=== PATIENT | male | born 1950 | race Caucasian/White ===

== ENCOUNTER 2022-03-26 17:02 | Emergency (ER) | payer MEDICARE, SELFPAY ==
[2022-03-26 17:31] VITALS: BP 124/92; PULSE 97; RESP 18; TEMP 36.4; O2SAT 97; BMI 28.0
[2022-03-26 17:46] VITALS: BP 124/92; RESP 14
--- NOTE | 2022-03-26 17:46 | CRLHL7_ITS ---
For Patients: As a result of the Century Cures Act, medical imaging exams and procedure reports are released immediately into your electronic medical record. You may view this report before your referring provider. If you have questions, please contact your health care provider. INDICATION: Falls. Head injury. Memory issues. TECHNIQUE: Multiple axial images were obtained through the brain without contrast. Sagittal and coronal re-formatted images were obtained. COMPARISON: None. FINDINGS: The ventricles and sulci are prominent. There is no mass effect or midline shift. There is no intracranial hemorrhage. There is decreased attenuation in the periventricular white matter consistent with small vessel seen disease. There is no skull fracture seen IMPRESSION: No acute intracranial abnormality. Atrophy and findings consistent with small vessel ischemic disease. Please note that all CT scans at this facility use dose modulation, iterative reconstruction, and/or weight-based dosing when appropriate to reduce radiation dose to as low as reasonably achievable. Dictated by Jacek Friedman MD @ 03/26/2022 7:07:04 PM (Electronically Signed)
--- NOTE | 2022-03-26 17:49 | ED_ITS ---
HPI - General Adult General Time Seen by Provider: 17:33 Date Seen: 03/26/22 Chief complaint: Fall/Minor Trauma Stated complaint: Falls Time Seen by Provider: 03/26/22 17:14 Source: patient, family (Daughter is present) and RN notes reviewed Mode of arrival: ambulatory Limitations: no limitations History of Present Illness HPI narrative: This 71-year-old male is brought in by his daughter from [facility] where he resides with concern of a fall. He had a witnessed fall on March 18 and hit the right side of his head, no loss of consciousness, denies any blood thinners. Not taking any NSAIDs or aspirin. He did not answer his phone this morning when his daughter was calling and they went to see him this afternoon. They found him on the ground in his living room where they thought he had fallen. As he is here, he states he did not fall today and that he was actually sleeping on the floor. He does admit though that people that fall may not know that there falling. He states he does not sleep in his bed and will sleep on the floor. He states to get up he will crawl to the couch and pull himself up. His daughter notes that they had to get him up from the ground. He recurrent least states that he has not fallen today. He has difficulty remembering his current physician and worries seen at. It sounds as if he is seen at [facility] here in [place]. He does admit there is still little pain on his right forehead where this happen. No visual issues, no pain anywhere else. He has had no neck or back pain. He does endorse some lower extremity edema that is worse on the left, does not sound like it has been evaluated. His daughter privately did tell nursing staff that patient has a significant history of alcohol use. Location: head Related Data Previous Rx's Medication Instructions Recorded magnesium 200 mg tablet 200 mg PO BID #60 tab 03/26/22 potassium chloride 20 mEq 20 meq PO DAILY #7 tab 03/26/22 tablet,extended release Allergies Allergy/AdvReac Type Severity Reaction Status Date / Time No Known Drug Allergies Allergy Verified 03/26/22 19:56 Review of Systems Status of ROS: Reports: 10 or more systems reviewed and unremarkable except as noted in History and below [facility] Medical History (Updated 03/26/22 @ 21:48 by Humaira Doty MD) Alcohol abuse Cancer CVA (cerebral vascular accident) Surgical History S/P cataract surgery Status post prostatectomy Social History Smoking Status: Never smoker Do you use any of these nicotine containing products: None Second hand tobacco smoke exposure: No How often do you have a drink containing alcohol: 4 or more times a week How many standard drinks containing alcohol do you have on a typical day: 3 or 4 AUDIT-C Alcohol total score: 5 Non-prescribed substance use: denies use Exam Const: Vital Signs, click to edit/add: Vital Signs - 24 hr 03/26/22 17:31 03/26/22 17:46 03/26/22 21:30 Temperature 97.5 F L Pulse Rate [Left P ulse Oximeter] 97 103 H Respiratory Rate 18 14 14 Blood Pressure [Le ft Upper Arm] 124/92 H 124/92 H 115/94 H Pulse Oximetry 97 95 Documenting provider has reviewed patient's vital signs: yes Common normals: no apparent distress and alert General appearance: cooperative and comfortable Orientation/consciousness: Yes awake HENMT: Common normals: external ears normal, external nose normal, oropharynx normal and dentition normal Nose: external nose normal External ear: external ears normal Other: Has bruising the looks dependent and resolving above the right supraorbital ridge and some dependent changes on the zygomatic arch, absolutely no pain on the zygomatic arch. He has got abrasions that are scabbed over and well healing without any evidence of infection on his right frontal forehead. There is no periorbital swelling on either side. Eye: Common normals: PERRL and EOMs intact bilaterally Periorbital: periorbital findings normal Conjunctiva: conjunctiva abnormal (Mild scleral icterus bilaterally, left lateral subconjunctival hematoma) Pupil: PERRL Neck & C-Spine: Common normals: full ROM, no lymphadenopathy, supple, no JVD and thyroid normal Thyroid: thyroid normal Chest: Common normals: inspection of chest normal Resp: Common normals: normal respiratory effort, no use of accessory muscles and clear to auscultation bilaterally Auscultation: clear to auscultation bilaterally Cardio: Common normals: no JVD, regular rate, regular rhythm, S1 normal heart sound and S2 normal heart sound Rate: regular rate Rhythm: regular rhythm Heart sounds: S1 normal and S2 normal GI: Common normals: Normal to inspection, nondistended, normoactive bowel sounds present, soft to palpation, non-tender and no masses Palpation: soft Extremity: Other: Bilateral pitting edema lower extremities, left worse than right. No secondary changes to be concerned of infection at this time. Neuro: Sensorium/orientation: awake and alert Course Course Hospital Course: Will get appropriate lab work including liver functions. Will proceed with a noncontrast head CT to ensure no underlying changes such as chronic subdurals, mild clinically insignificant brain bleeds etc.. Is unclear if this was a fall today or if he is actually sleeping on the floor. Certainly this patient may need increased cares but this point I am not sure if this is something he would consider at all. Will do initial metabolic workup with the labs, rule out traumatic Head changes with the CT as already reviewed. Reevaluation(s) Reevaluation #1: Reviewed with patient the finding of the hypokalemia and the painless jaundice. He has mildly elevated INR. He admits that he does his cooking and may not be eating adequately appropriately. My guess is the potassium certainly could be nutritionally deplete. As far as the bilirubin, we discussed with painless jaundice that next step I would recommend here in our ER would be to do a CT abdomen and pelvis with IV contrast. He is agreement. I have also ordered an EKG as well as 50 mEq oral potassium, effervescent, to increase his potassium absorption more quickly. I am adding on conjugation of the bilirubin given his total level was 6. He understands he is going to need an IV placed for the CT scan. Did have a chance to talk to his daughter once he went offers abdomen imaging. She states he has really been a lifelong alcoholic but there has been decline over the last couple years with more significant decline in his level of functioning and mentation in the last few months per her report. Time: 19:20 Reevaluation #2: Have reviewed with patient and his ex- who is now present the findings on the CT. He does have asymptomatic cholelithiasis. We discussed the liver disease seen on the CT and concern that this is alcohol related. Recommend seen GI at some point in the near future just to ensure that there was no other concomitant disease besides alcohol. It is stressed to him that he needs to stop drinking. His ex- is worried about him going back to [facility] as he lives alone, she has concerns that he will drink again. I have reviewed with her that unless the patient has medical issue needing hospitalization, supports the family's decision that he needs a higher level of care and is willing to go to a longterm, then we really have no reason for hospitalization. We are awaiting a lipase level on him which I presume is going to be normal, magnesium level and I am rechecking a potassium after his oral 50 mEq of the effervescent potassium. He really is asymptomatic. His ex- is worried about alcohol withdrawal and he shows no hemodynamic changes of that starting, no physical stigmata at this time. Patient is adamant that he does not want a higher level of care and would not go to a longterm. At this time, I a do have a sense he might have some mild cognitive changes but do not feel that he is incapacitated from making decisions. Unfortunately, ongoing alcohol use is a poor decision for him but is 1 that he is legally allowed to make at this time. I have discussed with them possibility of detox which he is not interested in. As far as stopping alcohol, my best recommendation is for treatment which they would have to work with the county or insurance to get that scheduled and prior authorize. Time: 21:20 Reevaluation #3: Patient's potassium has come back at 3. He is still asymptomatic, have reviewed his magnesium is low 1.1. He wants to go home. Thus I have ordered him 400 mg oral magnesium as he does not want to wait the 2 hours for IV. Again, he has likely been at these levels with his electrolytes for some time and this is not a new acute finding most likely. I do feel he is stable to discharge to home as hospitalization may further correct his electrolytes, but it will not stop the alcohol use disorder. He very well may need treatment for that and that is not something that hospitalization here can facilitate. Overall, he is clinically safe for discharge to home. Time: 21:50 Vital Signs Vital signs: Initial Vital Signs Temperature 97.5 F L 03/26/22 17:31 Temperature Source Temporal Artery Scan 03/26/22 17:31 Pulse Rate 97 03/26/22 17:31 Respiratory Rate 18 03/26/22 17:31 Blood Pressure 124/92 H 03/26/22 17:31 Blood Pressure Mean 102 03/26/22 17:31 Blood Pressure Position Sitting 03/26/22 17:31 Pulse Oximetry 97 03/26/22 17:31 Oxygen Delivery Method 03/26/22 17:31 Vital Signs Temperature 97.5 F L 03/26/22 17:31 Pulse Rate 97 03/26/22 17:31 Respiratory Rate 18 03/26/22 17:31 Blood Pressure 124/92 H 03/26/22 17:31 Pulse Oximetry 97 03/26/22 17:31 Temperature 97.5 F L 03/26/22 17:31 Pulse Rate 103 H 03/26/22 21:30 Respiratory Rate 14 03/26/22 21:30 Blood Pressure 115/94 H 03/26/22 21:30 Pulse Oximetry 95 03/26/22 21:30 Medical Decision Making MDM Narrative Medical decision making narrative: During his course here, initially considered traumatic head injuries as well as alcohol affects and secondary medical issues from alcohol. His found to have hypokalemia likely nutritional related, compounded by his alcoholism. He was also found to have painless jaundice which thankfully in the workup thus far, CT abdomen pelvis with IV contrast shows no evidence of any pancreatic mass. In his situation, this very likely may just be his alcoholic liver disease but warrants further evaluation with a GI specialist/liver specialist to ensure no other concomitant diseases. This is stable at this time though and does not warrant hospitalization for this. His cholelithiasis is asymptomatic and is a secondary finding. Lab Data Labs: Lab Results 03/26/22 03/26/22 03/26/22 Range/Units 18:12 18:12 18:12 WBC 10.04 (4.50-11.00) K/uL RBC 3.71 L (4.30-5.90) m/uL Hgb 13.6 (13.5-17.5) gm/dL Hct 38.8 (37.0-53.0) % MCV 105 H (80-100) fL MCH 37 H (26-34) pg MCHC 35 (32-36) gm/dL RDW Coeff of Afia 14.4 (11.5-15.5) % Plt Count 212 (140-440) K/uL Neut % (Auto) 77.8 H (42.0-72.0) % Lymph % (Auto) 10.2 L (20-44) % Kemper % (Auto) 10.5 (0.0-11.0) % Eos % (Auto) 0.3 (0.0-7.0) % Baso % (Auto) 0.4 (0.0-3.0) % Neut # (Auto) 7.80 H (1.7-7.0) K/uL Lymph # (Auto) 1.00 (0.90-2.90) K/uL Kemper # (Auto) 1.10 H (0.00-0.90) K/UL Eos # (Auto) 0.03 (0.00-0.50) K/uL Baso # (Auto) 0.04 (0.00-0.30) K/uL Abs Immat Gran (auto) 0.08 (0.00-0.30) K/uL INR 1.32 H (0.91-1.10) APTT 31 (23-33) Seconds Sodium 131 L (135-149) mmol/L Potassium 2.7 L* (3.6-5.1) mmol/L Chloride 89 L (96-114) mmol/L Carbon Dioxide 36 H (20-32) mmol/L BUN 15 (7-30) mg/dL Creatinine 0.5 (0.5-1.5) mg/dL Estimated Creat Clear 68.94 Glucose 117 H (60-115) mg/dL Lactate (0.5-1.9) mmol/L Calcium 7.7 L (8.4-10.6) mg/dL Magnesium (1.5-2.6) mg/dL Total Bilirubin 6.0 H (0.1-1.5) mg/dL Direct Bilirubin 3.6 H (0.0-0.5) mg/dL AST 94 H (12-35) U/L ALT 46 (4-50) U/L Alkaline Phosphatase 92 (40-150) U/L Ammonia (13.1-30.0) umol/L Total Protein 6.2 (6.0-8.3) g/dL Albumin 2.9 L (3.3-5.0) g/dL Lipase 27 (23-300) U/L Ethyl Alcohol < 0.01 L (0.01-0.03) % 03/26/22 03/26/22 03/26/22 Range/Units 18:12 18:50 21:30 WBC (4.50-11.00) K/uL RBC (4.30-5.90) m/uL Hgb (13.5-17.5) gm/dL Hct (37.0-53.0) % MCV (80-100) fL MCH (26-34) pg MCHC (32-36) gm/dL RDW Coeff of Afia (11.5-15.5) % Plt Count (140-440) K/uL Neut % (Auto) (42.0-72.0) % Lymph % (Auto) (20-44) % Kemper % (Auto) (0.0-11.0) % Eos % (Auto) (0.0-7.0) % Baso % (Auto) (0.0-3.0) % Neut # (Auto) (1.7-7.0) K/uL Lymph # (Auto) (0.90-2.90) K/uL Kemper # (Auto) (0.00-0.90) K/UL Eos # (Auto) (0.00-0.50) K/uL Baso # (Auto) (0.00-0.30) K/uL Abs Immat Gran (auto) (0.00-0.30) K/uL INR (0.91-1.10) APTT (23-33) Seconds Sodium (135-149) mmol/L Potassium 3.0 L (3.6-5.1) mmol/L Chloride (96-114) mmol/L Carbon Dioxide (20-32) mmol/L BUN (7-30) mg/dL Creatinine (0.5-1.5) mg/dL Estimated Creat Clear Glucose (60-115) mg/dL Lactate 2.5 H (0.5-1.9) mmol/L Calcium (8.4-10.6) mg/dL Magnesium 1.1 L (1.5-2.6) mg/dL Total Bilirubin (0.1-1.5) mg/dL Direct Bilirubin (0.0-0.5) mg/dL AST (12-35) U/L ALT (4-50) U/L Alkaline Phosphatase (40-150) U/L Ammonia < 9.0 L (13.1-30.0) umol/L Total Protein (6.0-8.3) g/dL Albumin (3.3-5.0) g/dL Lipase (23-300) U/L Ethyl Alcohol (0.01-0.03) % Imaging Data CT scan - head: Attestation: I have reviewed the pertinent imaging results. My impression: My preliminary review of this noncontrast head CT, I do not find any acute bleed or fracture. Radiologist's impression: Patient: PAKO COLEMAN Facility:?[facility] Patient ID:?[id number] Site Patient ID:?[id number]. Site :?[id number] Study:?CT Head W/O-03/26/2022 6:26:09 PM Ordering Physician:Katie Gerardo Final Report: INDICATION: Falls. Head injury. Memory issues. TECHNIQUE: Multiple axial images were obtained through the brain without contrast. Sagittal and coronal re-formatted images were obtained. COMPARISON: None. FINDINGS: The ventricles and sulci are prominent. There is no mass effect or midline shift. There is no intracranial hemorrhage. There is decreased attenuation in the periventricular white matter consistent with small vessel seen disease. There is no skull fracture seen IMPRESSION: No acute intracranial abnormality. Atrophy and findings consistent with small vessel ischemic disease. Please note that all CT scans at this facility use dose modulation, iterative reconstruction, and/or weight-based dosing when appropriate to reduce radiation dose to as low as reasonably achievable. Dictated by Jacek Friedman MD @ 03/26/2022 7:07:04 PM (Electronic Signature) CT scan - abdomen: Attestation: I have reviewed the pertinent imaging results. Radiologist's impression: Patient: PAKO COLEMAN Facility:?[facility] Patient ID:?[id number] Site Patient ID:?[id number] Site :?[id number] Study:?CT Abdomen/Pelvis -03/26/2022 7:59:01 PM Ordering Physician:Katie Gerardo Final Report: INDICATION: Painless jaundice TECHNIQUE: CT abdomen and pelvis acquired with i.v. 95 mL Isovue 370. Coronal and sagittal reformats were obtained. COMPARISON: No comparison CT. FINDINGS: [employer] CT images: Nonobstructive bowel gas pattern. Multilevel lumbar spine degenerative disc disease. Lower chest: Unremarkable. Liver: Extensive low attenuation throughout the liver parenchyma. Likely areas of geographic low-attenuation. Liver capsule appears to be grossly smoothly marginated. Small amount of ascites adjacent to the liver. Spleen: Unremarkable. Pancreas: No pancreatic mass or calcifications. No peripancreatic inflammatory changes. Main pancreatic duct normal in caliber. Gallbladder and bile ducts: Dependent gallstone, series 2, image 43. No acute inflammatory changes in the gallbladder fossa. Common bile duct normal in caliber. Kidneys: Unremarkable. No kidney or ureteral stones and no hydronephrosis seen. Benign appearing cyst in the right kidney, noted on series 2, image 49. Adrenal glands: Unremarkable. GI tract: Bowel loops are normal in caliber. Sigmoid diverticulosis. No abnormal colonic wall thickening. Vascular: Portal vein branches, splenic vein, and SMV are patent. Origins of celiac artery and SMA are widely patent. Abdominal aorta normal in caliber. Lymph nodes: Unremarkable. Miscellaneous: Unremarkable. No pneumoperitoneum is seen. No significant ascites is noted. Pelvic Organs: Bladder wall normal. No free pelvic fluid. No enlarged inguinal or pelvic sidewall lymph nodes. Prostate gland not identified. Bones: Unremarkable for age. IMPRESSION: 1. Diffuse, extensive low attenuation to the liver, indicating likely extensive fatty infiltration or significant chronic liver disease. No imaging evidence of liver cirrhosis or focal liver lesion. Small amount of ascites adjacent to the liver. Splenic size normal. Portal vein patent. No pancreatic mass. 2. Cholelithiasis. No CT imaging evidence of acute cholecystitis. Bile ducts are normal in caliber. 3. Diverticulosis. Dictated by Steffen Angel MD @ 03/26/2022 9:00:10 PM Please note that all CT scans at this facility use dose modulation, iterative reconstruction, and/or weight-based dosing when appropriate to reduce radiation dose to as low as reasonably achievable. Dictated by: Steffen Angel MD @ 03/26/2022 21:00:16 (Electronic Signature) ECG Data Attestation: I personally reviewed and interpreted this ECG as follows: (Sinus rhythm, 90 beats per minute, baseline artifact and low voltage. There is flattening of T-waves that they do see that looks more diffuse, QT corrected is 491 milliseconds.) Prior ECG tracings: available for review (Compared to an EKG from February of 2020 and his QT corrected was 437 milliseconds at that time, he showed sinus rhythm 70 beats per minute but had normal appearing T-waves, certainly more peaked than what I am seen and this EKG today. Will have nursing staff place him on cardiac monitoring with these ) Critical Care Time Critical Care Time Critical Care Time: No Discharge Plan Discharge Clinical Impression: Liver disease, Alcohol use disorder, Hyperbilirubinemia, Hypokalemia, Hypomagnesemia Patient Disposition: Home, Self-Care Condition: Stable Instructions: Hypokalemia (ED), Alcohol Withdrawal (ED), Hypomagnesemia (ED), Alcohol Use Disorder (ED) Additional Instructions: It is extremely important that you stop drinking alcohol, you may need to consider chemical dependency treatment to attain the school if needed. If you need assistance for placement for chemical dependency, can work with your insurance or contact the county you reside in to help with this. Will replace your potassium for the next few days but will need to be rechecked in clinic early this next week. You need to get scheduled for a clinic followup [facility]. I would recommend referral to a GI specialist/liver specialist to further workup your liver disease and continue monitoring your elevated bilirubin level/jaundice. Also recommend taking a multi vitamin daily, thiamine 100 mg daily. Start the oral potassium and oral magnesium replacement tomorrow, prescriptions sent to pharmacy. Activity Level: Activity as Tolerated Prescriptions: New potassium chloride 20 mEq tablet extended release 20 meq PO DAILY Qty: 7 0RF magnesium 200 mg tablet 200 mg PO BID Qty: 60 0RF Follow Up/Referrals: Josh Ramsay MD [Primary Care Provider] - Stand Alone Forms: SCADA Access Info Instructions
[2022-03-26 18:37] LABS: Albumin* 2.9 g/dL (3.3-5.0); Chloride* 89 mmol/L (96-114)
[2022-03-26 18:38] LABS: Sodium* 131 mmol/L (135-149)
[2022-03-26 18:40] LABS: Carbon Dioxide* 36 mmol/L (20-32); Creatinine* 0.5 mg/dL (0.5-1.5); Est. Creatinine Clearance* 68.94; Estimated Glomerular Filt Rate 108.37
[2022-03-26 18:41] LABS: Alanine Aminotransferase* 46 U/L (4-50); Alkaline Phosphatase* 92 U/L (40-150); Aspartate Amino Transferase* 94 U/L (12-35); Basophils Absolute Auto 0.04 K/uL (0.00-0.30); Basophils Percent Auto 0.4 % (0.0-3.0); Blood Urea Nitrogen* 15 mg/dL (7-30); Calcium* 7.7 mg/dL (8.4-10.6); Eosinophils Absolute Auto 0.03 K/uL (0.00-0.50); Eosinophils Percent Auto 0.3 % (0.0-7.0); Glucose* 117 mg/dL (60-115); Hematocrit 38.8 % (37.0-53.0); Hemoglobin* 13.6 gm/dL (13.5-17.5); INR 1.32 (0.91-1.10); Immature Granulocytes Abs Auto 0.08 K/uL (0.00-0.30); Lymphocytes Percent Auto 10.2 % (20-44); Mean Corpuscular HGB Conc 35 gm/dL (32-36); Mean Corpuscular Hemoglobin 37 pg (26-34); Mean Corpuscular Volume 105 fL (80-100); Monocytes Percent Auto 10.5 % (0.0-11.0); Neutrophils Percent Auto 77.8 % (42.0-72.0); Platelet Count* 212 K/uL (140-440); Prothrombin Time 16.8 Seconds; RDW Coefficient of Variation % 14.4 % (11.5-15.5); Red Blood Count 3.71 m/uL (4.30-5.90); Total Protein* 6.2 g/dL (6.0-8.3); White Blood Count* 10.04 K/uL (4.50-11.00)
[2022-03-26 18:42] LABS: Partial Thromboplastin Time* 31 Seconds (23-33)
[2022-03-26 18:50] LABS: Slide Review Reflex No
[2022-03-26 18:53] LABS: Ammonia* < 9.0 umol/L (13.1-30.0); Ethanol* < 0.01 % (0.01-0.03); Potassium* 2.7 mmol/L (3.6-5.1)
[2022-03-26 18:54] LABS: Lactate* 2.5 mmol/L (0.5-1.9)
--- NOTE | 2022-03-26 19:20 | CRLHL7_ITS ---
For Patients: As a result of the 21st Century Cures Act, medical imaging exams and procedure reports are released immediately into your electronic medical record. You may view this report before your referring provider. If you have questions, please contact your health care provider. INDICATION: Painless jaundice TECHNIQUE: CT abdomen and pelvis acquired with i.v. 95 mL Isovue 370. Coronal and sagittal reformats were obtained. COMPARISON: No comparison CT. FINDINGS: [employer] CT images: Nonobstructive bowel gas pattern. Multilevel lumbar spine degenerative disc disease. Lower chest: Unremarkable. Liver: Extensive low attenuation throughout the liver parenchyma. Likely areas of geographic low-attenuation. Liver capsule appears to be grossly smoothly marginated. Small amount of ascites adjacent to the liver. Spleen: Unremarkable. Pancreas: No pancreatic mass or calcifications. No peripancreatic inflammatory changes. Main pancreatic duct normal in caliber. Gallbladder and bile ducts: Dependent gallstone, series 2, image 43. No acute inflammatory changes in the gallbladder fossa. Common bile duct normal in caliber. Kidneys: Unremarkable. No kidney or ureteral stones and no hydronephrosis seen. Benign appearing cyst in the right kidney, noted on series 2, image 49. Adrenal glands: Unremarkable. GI tract: Bowel loops are normal in caliber. Sigmoid diverticulosis. No abnormal colonic wall thickening. Vascular: Portal vein branches, splenic vein, and SMV are patent. Origins of celiac artery and SMA are widely patent. Abdominal aorta normal in caliber. Lymph nodes: Unremarkable. Miscellaneous: Unremarkable. No pneumoperitoneum is seen. No significant ascites is noted. Pelvic Organs: Bladder wall normal. No free pelvic fluid. No enlarged inguinal or pelvic sidewall lymph nodes. Prostate gland not identified. Bones: Unremarkable for age. IMPRESSION: 1. Diffuse, extensive low attenuation to the liver, indicating likely extensive fatty infiltration or significant chronic liver disease. No imaging evidence of liver cirrhosis or focal liver lesion. Small amount of ascites adjacent to the liver. Splenic size normal. Portal vein patent. No pancreatic mass. 2. Cholelithiasis. No CT imaging evidence of acute cholecystitis. Bile ducts are normal in caliber. 3. Diverticulosis. Dictated by Steffen Angel MD @ 03/26/2022 9:00:10 PM Please note that all CT scans at this facility use dose modulation, iterative reconstruction, and/or weight-based dosing when appropriate to reduce radiation dose to as low as reasonably achievable. Dictated by: Steffen Angel MD @ 03/26/2022 21:00:16 (Electronically Signed)
[2022-03-26] MEDS: POTASSIUM BICARB 25 MEQ EFFERVESCENT TAB 50 MEQ PO (19:53)
[2022-03-26 20:09] LABS: Bilirubin Conjugated* 1.2 mg/dl (0.0-0.5); Bilirubin Direct* 3.6 mg/dL (0.0-0.5); Bilirubin Unconjugated* 2.4 mg/dl (0.0-0.3)
[2022-03-26 20:10] LABS: Lipase* 27 U/L (23-300)
[2022-03-26 21:26] LABS: Magnesium* 1.1 mg/dL (1.5-2.6)
[2022-03-26 21:30] VITALS: BP 115/94; PULSE 103; RESP 14; O2SAT 95
[2022-03-26] MEDS: MAGNESIUM OXIDE 400 MG TABLET PO (22:00)
[2022-03-28 16:52] LABS: Lipase* 28 U/L (23-300)
== END 2022-03-26 22:41 | disposition home or self-care (01) ==
PROVIDERS: Emergency Provider Family Medicine; PCP Family Medicine
DX: E80.6 Other disorders of bilirubin metabolism (principal); E87.6 Hypokalemia; E83.42 Hypomagnesemia; F10.10 Alcohol abuse, uncomplicated
CPT/HCPCS: 36415; 70450; 74177; 80053; 82077; 82140; 82248; 83605; 83690; 83735; 84132; 85025; 85610; 85730; 93005; 99284; 99285; A9270; Q9967

== ENCOUNTER 2024-06-18 08:45 | Outpatient (CLI) | payer MEDICARE, SELFPAY ==
--- OUTSIDE RECORDS SUMMARY | 2024-06-18 08:53 | XMS_ITS | Clinical Summary ---
Author Organization [facility] Address [place], [place] [address] Care Team Providers Care Ladle Puller Name Role Phone Josh Ramsay MD Primary Care Provider Carlos Enrique Langley MD Unavailable + Allergies No known active allergies Medications Medication Sig Dispensed Refills Start Date End Date Status CPAPIndications:Obstr uctive sleep apnea (adult) (pediatric) As directed. autoCPAP, heated humidifier, mask, headgear, filters and tubing. Pressure: 4-15cm/H2O Length of Need: 99 1 Each 11 04/15/2022 Active magnesium oxide (MAG-OX 400) 400 mg tabletIndications:Low magnesium level Take 1 Tablet (400 mg) by mouth once daily. 0 04/20/2022 Active multivitamin (MVI) tabletIndications:Bod y nutrition deficit Take 1 Tablet by mouth once daily. 0 04/20/2022 Active spironolactone (ALDACTONE) 50 mg tabletIndications:Asc ites due to alcoholic cirrhosis (HC) Take 1 Tablet (50 mg) by mouth once daily. 90 Tablet 3 06/27/2023 Active furosemide (LASIX) 40 mg tabletIndications:Leg swelling Take 1 Tablet (40 mg) by mouth every morning. 90 Tablet 3 06/27/2023 Active thiamine (VITAMIN B1) 100 mg tabletIndications:Bod y nutrition deficit Take 1 Tablet (100 mg) by mouth once daily. 90 Tablet 3 01/09/2024 Active folic acid 1 mg tabletIndications:Fol ic acid deficiency Take 1 Tablet (1 mg) by mouth once daily. 90 Tablet 3 01/26/2024 Active Active Problems Problem Noted Date Diagnosed Date Alcoholism in remission 01/26/2024 Hepatic cirrhosis 07/28/2023 Depression, recurrent 07/28/2023 Ascites due to alcoholic cirrhosis 04/21/2022 Hypoalbuminemia 04/21/2022 Bilateral lower extremity edema 03/02/2022 Cerebrovascular disease 03/02/2022 Cognitive impairment 01/07/2021 Malignant neoplasm of prostate 09/24/2020 Benign essential HTN 09/22/2017 Adenomatous colon polyp 08/26/2016 Overview (08/26/2016): Colonoscopy 08/2016 polyps repeat in 5 years Alcohol use disorder, moderate, dependence 05/22 KEVIN 05/22/2013 AHI-26 05/28/2013 Resolved Problems Problem Noted Date Diagnosed Date Resolved Date Right Neuralgia Paresthetica 09/202009/24/2020 03/02/2022 Alcohol abuse 06/06/2019 10/04/2019 Ingrown toenail 05/11/2015 03/02/2022 Immunizations Name Administration Dates Next Due COVID-19 VACCINE SPIKEVAX (M ODERNA 50MCG/0.5ML) 12YO+ PFS 01/26/2024,06/27/2023 COVID-19 vaccine (Moderna 100mcg/0.5mL) PF, MDV 12/24/2020,11/26/2020 COVID-19 vaccine (Moderna 50mcg/0.5mL) 12YO+ BIVALENT PF, MDV 07/04/2022 COVID-19 vaccine (Unified Color-Bio NTech 30mcg/0.3mL) 12YO+ RUDY-SUCROSE PF, MDV 01/24/2022 Influenza, High-dose Inactivated 06/18/2019,05/20,06/22/2016 Influenza, High-dose Quadriv alent Inactivated 07/04/2022,06/17/2021,08/01/2020 Influenza, IIV3 (Age >=3 years) 07/10/20 14,09/30/2013,09/25/2012,2010 Influenza, Inactivated AIIV4 (Age 65+ Years) Preserv Free 06/27/2023 Influenza, Inactivated IIV3 (Age 65+ Years) Preserv Free 08/29/2017 Pneumococcal Conj 20-valent (Prevnar 20) 09/27/2022 Zoster (Zostavax-ZVL, live) 09/24/2014 Family History Medical History Relation Name Comments Heart Disease Brother stents at 72 Hyperlipidemia Brother Heart Disease Father bypass at 59, fatal mi at 69. Cancer-prostate Neg. 1 Cancer-colon Neg. 2 Diabetes Neg. 3 Anesthesia Problem No Family History Relation Name Status Comments Brother Father Mother Neg. 1 Neg. 2 Neg. 3 Social History Tobacco Use Types Packs/Day Years Used Date Smoking Tobacco: Former Smokeless Tobacco: Never Tobacco Cessation:Counseling Given: No Alcohol Use Standard Drinks/Week Comments Not Currently 0 (1 standard drink = 0.6 oz pur e alcohol) a bottle of liquor per week PHQ-2 Answer Date Recorded PHQ-2 TOTAL SCORE 3 06/27/2023 Social Connections Answer Date Recorded Frequency of Communication with Friends and Fami ly Not on file 06/02/2024 Financial Resource Strain Answer Date R ecorded Difficulty of Paying Living Expenses 3 05/29/2023 Difficulty of Paying Living Expenses Not on file 05/29/2023 Food Insecurity Answer Date Recorded Worried About Running Out of Food in the Last Ye ar 1 05/29/2023 Transportation Needs Answer Date Record ed Lack of Transportation (Medical) 1 05/29/2023 Housing Stability Answer Date Recorded Unable to Pay for Housing in the Last Year 1 05/29/2023 Sex and Gender Information Value Date Recorded Sex Assigned at Not on file Gender Identity Not on file Sexual Orientation Not on file Obstetrics History Last Filed Vital Signs Vital Sign Reading Time Taken Comments Blood Pressure 129/85 01/26/2024 8:28 AM CDT Pulse 78 01/26/2024 8:28 AM CDT Temperature 36.4 ??C (97.5 ??F) 02/18/2020 8:28 AM CD T Respiratory Rate 18 08/14/2019 9:21 AM INVENTORY CONTROL COORDINATOR Oxygen Saturation 97% 01/26/2024 8:28 AM CDT Inhaled Oxygen Concentration - - Weight 102.8 kg (226 lb 9.6 oz) 01/26/2024 8:28 AM CDT Height 176.5 cm (5' 9.49) 06/27/2023 9:05 AM CD T Body Mass Index 32.99 06/27/2023 9:05 AM CDT Plan of Treatment Upcoming Encounters Date Type Department Care Team (Late st Contact Info) Description 08/12/2024 8:00 AM INVENTORY CONTROL COORDINATOR Orders Only [facility] [address] [place] [address] [place], [place] 08/12/2024 8:25 AM INVENTORY CONTROL COORDINATOR Office Visit [facility] [address] [place] [address] Josh Ramsay MD [address] [place] [address] Health Maintenance Due Date Last Done Comments Tdap 1960 Tetanus booster 1969 Fecal testing non-DNA (FIT,FOBT,iFOBT) for age 45-75 06/23/2012 06/23/2011 Zoster (shingles) series for age 50+ (2 of 3) 11/19/2014 09/24/2014 Colonoscopy through age 75 08/25/202108/25, 08/25/2016, 08/25/2016, Additional history exists RSV vaccine for adults or (1 - 1-dose 75+ series) 2024 COVID-19 vaccine series (2023- season) 2024 01/26/2024, 06/27/2023, 07/04/2022, Additional history exists Influenza for age 65+ 05/19/2024 06/27/2023 , 07/04/2022, 06/17/2021, Additional history exists BMI (ht and wt on same day) for age 18+ 06/27/2024 06/27/2023, 03/02/2022, 09/24/2020, Additional history exists Depression screening for age 12+ 06/27/2024 06/27/2023, 03/03/2022, 03/02/2022, Additional history exists Medicare Wellness for age 65+ 06/27/2024, 03/02/2022, 06/06/2019, Additional history exists Lipids for age 45-75 09/27/2027 09/27/2022, 09/26/2017, 06/28/2011 Hepatitis C screening for ag e 18-79 Completed 09/26/2017 Pneumococcal series for age 65+ Completed 3 Procedures Procedure Name Priority Date/Time Associated Diagnosis Comments LC LIPID PANEL AND CHOL/HDL RATIO Routine 09/27/2022 10:28 AM INVENTORY CONTROL COORDINATOR Lipid screening ANTI HCV Routine 09/26/2017 7:54 AM INVENTORY CONTROL COORDINATOR Need for hepatitis C screening test COLONOSCOPY 08/25/2016 10:06 AM INVENTORY CONTROL COORDINATOR OCCULT BLOOD IFOBT STOOL Routine 06/23/2011 3:06 PM CDT Routine general medical examination at a health care facility from Last 3 Months or Most Recently Relevant to Health Maintenance Results * LC LIPID PANEL AND CHOL/HDL RATIO (09/27/2022 10:28 AM INVENTORY CONTROL COORDINATOR) Cholesterol, Total 149 100 - 199 mg/dL 09/30/2022 1:07 AM [facility] Triglycerides 54 0 - 149 mg/dL 09/30/2022 1:07 AM [facility] HDL Cholesterol 57 >39 mg/dL 3 1:07 AM [facility] VLDL Cholesterol Russ 11 5 - 40 mg/dL 09/30/2022 1:07 AM [facility] LDL Chol Calc ([facility]) 81 0 - 99 mg/dL 09/30/2022 1:07 AM [facility] T. Chol/HDL Ratio 2.6 0.0 - 5.0 ratio 09/30/2022 1:07 AM [facility] ([facility] Comment: ?T. Chol/HDL Ratio ?Men ??Women ?1/2 Avg.Risk ??3.4 ?3.3 ?Avg.Risk ??5.0 ?4.4 ? 2X Avg.Risk ??9.6 ?7.1 ? 3X Avg.Risk 23.4 ?? 11.0 Blood BLOOD SPECIMEN / Unknown Venipuncture / Unknown 09/27/2022 10:28 AM INVENTORY CONTROL COORDINATOR 09/27/2022 10:32 AM INVENTORY CONTROL COORDINATOR Narrative [facility] ([facility]) - 09/30/2022 1:07 AM INVENTORY CONTROL COORDINATOR Performed at: ??01 - [facility] [place] [address] ??[id number] Medical Office Manager: Ollie Craft MD, Phone: ??[phone] Josh Ramsay MD SEND OUTS [facility] ([facility]) [address] [place] [id number], * ANTI HCV (09/26/2017 7:54 AM INVENTORY CONTROL COORDINATOR) HEPATITIS C ANTIBODY Non-Reacti ve Non-Reacti ve 09/26/2017 1:41 PM INVENTORY CONTROL COORDINATOR [facility] Blood BLOOD SPECIMEN / Unknown Venipuncture / Unknown 09/26/2017 7:54 AM INVENTORY CONTROL COORDINATOR 09/26/2017 7:54 AM INVENTORY CONTROL COORDINATOR Narrative [facility] - 09/26/2017 1:41 PM INVENTORY CONTROL COORDINATOR Antibodies to HCV not detected; does not exclude the possibility of exposure to HCV. Johs Ramsay MD SEND OUTS [facility] [address] [place] [address], [place] * COLONOSCOPY (08/25/2016 10:06 AM INVENTORY CONTROL COORDINATOR) 08/25/2016 10:0 6 AM INVENTORY CONTROL COORDINATOR Narrative Transcriptions Kali Figueroa MD - 08/25/2016 11:17 AM CST Patient Name: Alejandro Wilson Procedure Date: 08/25/2016 Gender: Male Date of : 1950 Admit Type: Outpatient Procedure: Colonoscopy Proceduralist: Kali Figueroa MD Indications/Pre-Op Diagnosis: Screening for colorectal malignant neoplasm, Last colonoscopy 10 years ago Medications: Fentanyl 100 micrograms IV, Midazolam 4 mgIV, The level of sedation administered wasmoderate Procedure Description: The patient had risks, benefits and alternatives explained to andgave informed consent. The patient had a stable cardiopulmonary status and judged an adequate candidate for conscious sedation. The [id number] was passed through the anus and advanced tothe cecum, identified by appendiceal orifice and ileocecal valve. The colonoscopy was performed without difficulty. The patient toleratedthe procedure well. The quality of the bowel preparation was good. The ileocecal valve, appendiceal orifice, and rectum were photographed. Complications: No immediate complications. Estimated Blood Loss & Specimen: Estimated blood loss: none. Specimen collected - Yes and sent to Laboratory Findings: The perianal and digital rectal examinations were normal. Two sessile polyps were found in the ascending colon. The polyps were3 mm in size. These polyps were removed with a cold biopsy forceps. Resection and retrieval were complete. Three sessile polyps were found in the sigmoid colon. The polyps were3 to 5 mm in size. These polyps were removed with a cold snare.Resection and retrieval were complete. Multiple small and large-mouthed diverticula were found in thesigmoid colon, in the descending colon and in the ascending colon. The exam was otherwise without abnormality on direct and retroflexion views. Impressions/Post-Op Diagnosis: - Two 3 mm polyps in the ascending colon, removed with a cold biopsy forceps. Resected and retrieved. - Three 3 to 5 mm polyps in the sigmoid colon, removed with a cold snare. Resected and retrieved. - Diverticulosis in the sigmoid colon, in the descending colon and in the ascending colon. - The examination was otherwise normal on direct and retroflexionviews. Recommendation: - Patient has a contact number available for emergencies. The signsand symptoms of potential delayed complications were discussed with the patient. Return to normal activities tomorrow. Written discharge instructions were provided to the patient. - Resume previous diet. - Continue present medications. - Await pathology results. - Repeat colonoscopy is recommended. The colonoscopy date will be determined after pathology results from today's exam become available for review. Kali Figueroa MD 08/25/2016 11:17:02 AM This report has been signed electronically. Note Initiated On: 08/25/2016 10:06 AM Procedure Code(s): --- Professional --- 10665, Colonoscopy, flexible; with removalof tumor(s), polyp(s), or other lesion(s) bysnare technique 30867, 59, Colonoscopy, flexible; withbiopsy, single or multiple Diagnosis Code(s): --- Professional --- Z12.11, Encounter for screening formalignant neoplasm of colon D12.2, Benign neoplasm of ascending colon D12.5, Benign neoplasm of sigmoid colon K57.30, Diverticulosis of large intestine without perforation or abscess withoutbleeding CPT copyright 2015 [employer]. All rights reserved. The codes documented in this report are preliminary and upon fish farmer reviewmay be revised to meet current compliance requirements. Scope In: 10:53:34 AM Scope Withdrawal Time 0 hours 12 minutes 3 seconds Scope Out: 11:12:12 AM Kali Figueroa MD PROCEDURE ORD * OCCULT BLOOD IFOBT STOOL (06/23/2011 3:06 PM CDT) STOOL BLOOD ,IFOBT Negative (Negative) [facility] Stool specimen (specimen) STOOL SPECIMEN / Unknown 06/23/2011 3:06 PM CDT 06/23/2011 3:04 PM CDT Josh Ramsay MD LABORATORY [facility] [address] [place] [address] from Last 3 Months or Most Recently Relevant to Health Maintenance Advance Directives Documents on File Type Date Recorded Patient Telephone Exchange Operator Expl anation POLST 02/14/2024 8:53 AM 02/12/2024 POLST 01/16/2024 Care Teams Ladle Puller Relationship Specialty Start Date End Date Josh Ramsay MD [address] [place] [address] PCP - General Family Practice 06/30/16 Carlos Enrique Langley MD [address] [place] [address] [address] [place], [place] [address] Surgery - Urology 01/09/20
--- OUTSIDE RECORDS SUMMARY | 2024-06-18 08:54 | XMS_ITS | Clinical Summary ---
Author Organization [facility] Address [address] [place] [address] Care Team Providers Care Invoice Coder Name Role Phone Lucien Ramsay Primary Care Provider [phone] Allergies No known active allergies Medications Medication Sig Dispensed Refills Start Date End Date Status oxyCODONE (ROXICODONE) 5 MG tabletIndications:Mal ignant neoplasm of prostate (H) Take 1-2 tablets (5-10 mg) by mouth every 6 hours as needed for pain (Moderate to Severe) 12 tablet 01/02/2020 Active Active Problems Problem Noted Date Diagnosed Date Malignant neoplasm of prostate 01/02/2020 Social History Tobacco Use Types Packs/Day Years Used Date Smoking Tobacco: Former Smokeless Tobacco: Never Alcohol Use Standard Drinks/Week Comments Yes 0 (1 standard drink = 0.6 oz pur e alcohol) a couple drinks per day Adolescent Education Answer Date Record ed Getting School Help Needed Not on file 07/04 Sex and Gender Information Value Date Recorded Sex Assigned at Not on file Gender Identity Not on file Sexual Orientation Not on file Last Filed Vital Signs Vital Sign Reading Time Taken Comments Blood Pressure 134/83 01/03/2020 7:55 AM CDT Pulse 88 01/02/2020 4:14 PM CDT Temperature 36.3 ??C (97.3 ??F) 01/03/2020 7:55 AM CD T Respiratory Rate 16 01/03/2020 7:55 AM CDT Oxygen Saturation 95% 01/03/2020 7:55 AM CDT Inhaled Oxygen Concentration - - Weight 92.2 kg (203 lb 4.8 oz) 01/02/2020 8:00 A M CDT Height 177.8 cm (5' 10) 01/02/2020 8:00 AM CDT Body Mass Index 29.17 01/02/2020 8:00 AM CDT Plan of Treatment Health Maintenance Due Date Last Done Comments ADVANCE CARE PLANNING 1950 ANNUAL REVIEW OF HM ORDERS 1950 [address] COLONOGRAPHY 1950 FIT 1950 FLEX SIG 1950 sDNA (Cologuard) 1950 HEPATITIS C SCREENING 1967 DTAP/TDAP/TD IMMUNIZATION (1 - Tdap) 1974 LIPID 1989 LUNG CANCER SCREENING 1999 FALL RISK ASSESSMENT 2014 Pneumococcal Vaccine: 65+ Years (1 of 1 - PCV) 2014 ZOSTER IMMUNIZATION (2 of 3) 11/19/2014 09/24/2014 GLUCOSE 01/02/2023 01/03/2020, 01/03/2020 MEDICARE ANNUAL WELLNESS VISIT 03/02/2023 03/02/2022 PHQ-2 (once per calendar year) 2023 RSV VACCINE (1 - 1-dose 75+ series) 2024 COVID-19 Vaccine (4 - 2023- season) 2024 01/24/2022, 12/24/2020, 11/26/2020 INFLUENZA VACCINE (#1) 2024 , 08/01/2020, 06/18/2019, Additional history exists COLONOSCOPY 08/25/2026 08/25/2016 COLORECTAL CANCER SCREENING 08/25/2026 HPV IMMUNIZATION Aged Out No longer e ligible based on patient's age to complete this topic MENINGITIS IMMUNIZATION Aged Out No l onger eligible based on patient's age to complete this topic RSV MONOCLONAL ANTIBODY Aged Out No l onger eligible based on patient's age to complete this topic Procedures Procedure Name Priority Date/Time Associated Diagnosis Comments BASIC METABOLIC PANEL Routine 01/03/2020 7:12 AM CDT Malignant neoplasm of prostate (H) COLONOSCOPY - HIM SCAN Routine 08/25/2016 from Last 3 Months or Most Recently Relevant to Health Maintenance Results * (ABNORMAL) Basic metabolic panel (01/03/2020 7:12 AM CDT) Sodium 139 133 - 144 mmol/L 01/03/2020 7:50 AM T [facility] Potassium 4.1 3.4 - 5.3 mmol/L 01/03/2020 7:50 AM [facility] Chloride 106 94 - 109 mmol/L 01/03/2020 7:50 AM [facility] Carbon Dioxide 26 20 - 32 mmol/L 01/03/2020 8:08 AM [facility] Anion Gap 7 3 - 14 mmol/L 01/03/2020 8:08 AM [facility] Glucose 129(H) 70 - 99 mg/dL 01/03/2020 8:08 AM [facility] Urea Nitrogen 16 7 - 30 mg/dL 01/03/2020 8:08 AM [facility] Creatinine 0.77 0.66 - 1.25 mg/dL 01/03/2020 8:08 AM [facility] GFR Estimate >90 >60 mL/min/{1. 73_m2} 01/03/2020 8:08 AM T [facility] Comment: Non GFR Calc Starting 09/04/2018, serum creatinine based estimated GFR (eGFR) will be calculated using the Chronic Kidney Disease Epidemiology Collaboration (CKD-EPI) equation. GFR Estimate If Black >90 >60 mL/min/{1. 73_m2} 01/03/2020 8:08 AM [facility] Comment: GFR Calc Starting 09/04/2018, serum creatinine based estimated GFR (eGFR) will be calculated using the Chronic Kidney Disease Epidemiology Collaboration (CKD-EPI) equation. Calcium 8.4(L) 8.5 - 10.1 mg/dL 01/03/2020 8:08 AM [facility] Blood specimen (specimen) 01/03/2020 7:12 AM CDT 01/03/2020 7:13 AM CDT Carlos Enrique Langley MD LAB - BLOO D ORDERABLES [facility] [address], [place] [address], [facility] [phone] * Colonoscopy - HIM Scan (08/25/2016) Narrative Radha Cr - 08/25/2016 [facility] PROGRESS NOTE EXACT DATE FROM CARE EVERYWHERE Provider Outside PROCEDURES from Last 3 Months or Most Recently Relevant to Health Maintenance Advance Directives For more information, please contact: [phone] * Full Code (Latest Code Status on File) Date Activated Date Inactivated Comments 01/03/2020 9:54 AM Question Answer Comments Code status determined by: Discussion with pedro nt/legal decision maker Care Teams Invoice Coder Relationship Specialty Start Date End Date Lucien Ramsay PCP - General Family Practice 12/24/19
--- OUTSIDE RECORDS SUMMARY | 2024-06-18 08:54 | XMS_ITS | Referral Summary ---
Author Organization [facility] Address [address] [place] [address] Care Team Providers Care Press Operator Automatic Name Role Phone Lucien Ramsay Primary Care Provider [phone] Allergies No known active allergies Medications Medication [...] 01/02/2020 8:00 AM CDT Plan of Treatment Not on file Procedures Procedure Name Priority Date/Time Associated Diagnosis Comments BASIC METABOLIC PANEL Routine 01/03/2020 7:12 AM CDT Malignant neoplasm of prostate (H) COLONOSCOPY - HIM SCAN Routine 08/25/2016 from Last 3 Months or Most Recently Relevant to Health Maintenance Results * (ABNORMAL) Basic metabolic panel (01/03/2020 7:12 AM CDT) Sodium 139 133 - 144 mmol/L 01/03/2020 7:50 AM [facility] Potassium 4.1 3.4 - 5.3 mmol/L 01/03/2020 7:50 AM [facility] Chloride 106 94 - 109 mmol/L 01/03/2020 7:50 AM [facility] Carbon Dioxide 26 20 - 32 mmol/L 01/03/2020 8:08 AM [facility] Anion Gap 7 3 - 14 mmol/L 01/03/2020 8:08 AM [facility] Glucose 129(H) 70 - 99 mg/dL 01/03/2020 8:08 AM [facility] Urea Nitrogen 16 7 - 30 mg/dL 01/03/2020 8:08 AM [facility] Creatinine 0.77 0.66 - 1.25 mg/dL 01/03/2020 8:08 AM [facility] GFR Estimate >90 >60 mL/min/{1. 73_m2} 01/03/2020 8:08 AM [facility] Comment: Non GFR Calc Starting 09/04/2018, serum creatinine based estimated GFR (eGFR) will be calculated using the Chronic Kidney Disease Epidemiology Collaboration (CKD-EPI) equation. GFR Estimate If Black >90 >60 mL/min/{1. 73_m2} 01/03/2020 8:08 AM [facility] Comment: GFR Calc Starting 09/04/2018, serum creatinine based estimated GFR (eGFR) will be calculated using the Chronic Kidney Disease Epidemiology Collaboration (CKD-EPI) equation. Calcium 8.4(L) 8.5 - 10.1 mg/dL 01/03/2020 8:08 AM CDT [facility] Blood specimen (specimen) 01/03/2020 7:12 AM CDT 01/03/2020 7:13 AM CDT Carlos Enrique Langley MD LAB - BLOO D ORDERABLES [facility] [address] [address], [place] [phone] * Colonoscopy - HIM Scan (08/25/2016) Narrative Radha Cr - 08/25/2016 [facility] PROGRESS NOTE EXACT DATE FROM CARE EVERYWHERE Provider Outside PROCEDURES from Last 3 Months or Most Recently Relevant to Health Maintenance Advance Directives For more information, please contact: [phone] * Full Code (Latest Code Status on File) Date Activated Date Inactivated Comments 01/03/2020 9:54 AM Question Answer Comments Code status determined by: Discussion with pedro nt/legal decision maker Care Teams Press Operator Automatic Relationship Specialty Start Date End Date Lucien Ramsay PCP - General Family Practice 12/24/19
--- NOTE | 2024-06-18 09:00 | CRLHL7_ITS ---
For Patients: As a result of the Century Cures Act, medical imaging exams and procedure reports are released immediately into your electronic medical record. You may view this report before your referring provider. If you have questions, please contact your health care provider. INDICATION: Alcoholic cirrhosis TECHNIQUE: Ultrasound abdomen limited. Sonographic images of the right upper quadrant were obtained using abbasi-scale and color Doppler images. COMPARISON: Abdominal ultrasound 02/19/2024 FINDINGS: Liver: The liver is suboptimally evaluated due to extensive overlying bowel gas. Borderline hepatomegaly measuring 18 centimeter in length. Increased in echogenicity. No definite suspicious masses are appreciated in the visualized portions. No intrahepatic biliary dilatation. Gallbladder: Possible layering sludge or stones. Thickened gallbladder wall measuring 6 mm. No pericholecystic fluid. Common bile duct: 5 mm. Pancreas: Suboptimally evaluated due to overlying bowel gas Right kidney: Normal in size. Normal echotexture and cortex. No suspicious masses, stones, or hydronephrosis. Vasculature: Suboptimally evaluated due to overlying bowel gas IMPRESSION: 1. Limited evaluation of the right upper quadrant due to extensive bowel gas. There is possible layering sludge versus cholelithiasis with gallbladder wall thickening and positive sonographic Lamb`s sign. No intra or extrahepatic biliary dilation. Findings are concerning for acute cholecystitis. Please correlate with LFTs. 2. Borderline hepatomegaly and hepatic steatosis. No definite suspicious masses are appreciated in the visualized portions of the liver. Dictated by Berenice Benoit MD @ 06/18/2024 3:40:54 PM (Electronically Signed)
[2024-06-18 10:05] LABS: Basophils Absolute Auto 0.08 K/uL (0.00-0.30); Basophils Percent Auto 1.3 % (0.0-3.0); Eosinophils Absolute Auto 0.12 K/uL (0.00-0.50); Eosinophils Percent Auto 1.9 % (0.0-7.0); Hematocrit 43.2 % (37.0-53.0); Hemoglobin* 14.3 gm/dL (13.5-17.5); Immature Granulocytes Abs Auto 0.06 K/uL (0.00-0.30); Immature Granulocytes Pct Auto 0.9 %; Lymphocytes Absolute Auto 1.57 K/uL (0.90-2.90); Lymphocytes Percent Auto 24.6 % (20-44); Mean Corpuscular HGB Conc 33 gm/dL (32-36); Mean Corpuscular Hemoglobin 35 pg (26-34); Mean Corpuscular Volume 106 fL (80-100); Monocytes Percent Auto 13.9 % (0.0-11.0); Neutrophils Absolute Auto 3.66 K/uL (1.7-7.0); Neutrophils Percent Auto 57.4 % (42.0-72.0); Platelet Count* 123 K/uL (140-440); RDW Coefficient of Variation % 13.4 % (11.5-15.5); Red Blood Count 4.08 m/uL (4.30-5.90); White Blood Count* 6.38 K/uL (4.50-11.00)
[2024-06-18 10:09] LABS: Slide Review Reflex No
[2024-06-18 10:16] LABS: Albumin* 4.6 g/dL (3.3-5.0); Chloride* 95 mmol/L (96-114); Sodium* 135 mmol/L (135-149)
[2024-06-18 10:17] LABS: Potassium* 4.6 mmol/L (3.6-5.1)
[2024-06-18 10:18] LABS: INR 0.97 (0.91-1.10); Prothrombin Time 13.4 Seconds
[2024-06-18 10:19] LABS: Alkaline Phosphatase* 140 U/L (40-150); Anion Gap 9 mEq/L (7-15); Aspartate Amino Transferase* 64 U/L (12-35); Bilirubin Direct* 0.4 mg/dL (0.0-0.5); Bilirubin Total* 1.1 mg/dL (0.1-1.5); Blood Urea Nitrogen* 14 mg/dL (7-30); Carbon Dioxide* 31 mmol/L (20-32); Creatinine* 0.8 mg/dL (0.5-1.5); Estimated Glomerular Filt Rate 92 ml/min; Glucose* 128 mg/dL (60-115); Total Protein* 8.1 g/dL (6.0-8.3)
[2024-06-18 10:20] LABS: Alanine Aminotransferase* 56 U/L (4-50); Calcium* 9.6 mg/dL (8.4-10.6)
[2024-06-19 17:11] LABS: Alpha Fetoprotein Tumor Marker 3 ng/mL (0-9)
== END 2024-06-18 08:46 | disposition home or self-care (01) ==
PROVIDERS: PCP Family Medicine; Visit Provider Physician Assistant
DX: K70.30 Alcoholic cirrhosis of liver without ascites (principal); K76.0 Fatty (change of) liver, not elsewhere classified
CPT/HCPCS: 36415; 76705; 80048; 80076; 82105; 85025; 85610